=== PATIENT | male | born 1985 | race African-American/Black ===

== ENCOUNTER 2018-02-08 09:37 | Emergency (ER) | payer SELFPAY ==
[~2018-02-08] VITALS: Ht 188 cm; Wt 100.7 kg
[2018-02-08 09:45] VITALS: BP 130/78
--- NOTE | 2018-02-08 10:32 | PHYS DOC ---
Past History Past Medical History: Anxiety Past Surgical History: No Surgical History Alcohol Use: Occasionally Drug Use: None Adult General Chief Complaint Chief Complaint: LACERATION/AVULSION HPI HPI 33-year-old male presents with laceration of the left thumb. Patient was out shoveling snow and had to cut something with a small pocket knife. Pocket knife slipped and cut his left thumb. The nail was not involved. The laceration appeared to be 2.5cm in length. It was bleeding. Bleeding was controlled prior to arrival. The patient has no other injuries. His tetanus is not up-to-date. The knife was brand-new. It had not been used previously. Review of Systems Review of Systems Constitutional: Denies fever or chills [] Eyes: Denies change in visual acuity, redness, or eye pain [] HENT: Denies nasal congestion or sore throat [] Respiratory: Denies cough or shortness of breath [] Cardiovascular: No additional information not addressed in HPI [] GI: Denies abdominal pain, nausea, vomiting, bloody stools or diarrhea [] : Denies dysuria or hematuria [] Musculoskeletal: Denies back pain or joint pain [] Integument: Laceration of the left thumb[] Neurologic: Denies headache, focal weakness or sensory changes [] Endocrine: Denies polyuria or polydipsia [] All other systems were reviewed and found to be within normal limits, except as documented in this note. Current Medications Current Medications Current Medications Medications (Trade) Dose Ordered Sig/Jaime Start Time Stop Time Status Last Admin Dose Admin Diphtheria/ Tetanus/Acell Pertussis (Boostrix) 0.5 ml ONCE ONCE 02/08/18 10:00 02/08/18 10:01 UNV Allergies Allergies Allergies Coded Allergies Type Severity Reaction Last Updated Verified No Known Drug Allergies 02/08/18 No Physical Exam Physical Exam Constitutional: Well developed, well nourished, no acute distress, non-toxic appearance. [] HENT: Normocephalic, atraumatic, bilateral external ears normal, oropharynx moist, no oral exudates, nose normal. [] Eyes: PERRLA, EOMI, conjunctiva normal, no discharge. [] Neck: Normal range of motion, no tenderness, supple, no stridor. [] Cardiovascular:Heart rate regular rhythm, no murmur [] Lungs & Thorax: Bilateral breath sounds clear to auscultation [] Abdomen: Bowel sounds normal, soft, no tenderness, no masses, no pulsatile masses. [] Skin: 2.5 cm linear laceration of the pad of the left thumb. [] Back: No tenderness, no CVA tenderness. [] Extremities: No tenderness, no cyanosis, no clubbing, ROM intact, no edema. [] Neurologic: Alert and oriented X 3, normal motor function, normal sensory function, no focal deficits noted. [] Psychologic: Affect normal, judgement normal, mood normal. [] Current Patient Data Vital Signs Vital Signs Date Time Temp Pulse Resp B/P (MAP) Pulse Ox O2 Delivery O2 Flow Rate FiO2 02/08/18 09:45 90 22 97 Room Air EKG EKG [] Radiology/Procedures Radiology/Procedures [] Course & Med Decision Making Course & Med Decision Making Pertinent Labs and Imaging studies reviewed. (See chart for details) The patient was given a TD In the ED. His laceration was repaired without consultation. See note below for more details. [] Dragon Disclaimer Dragon Disclaimer This electronic medical record was generated, in whole or in part, using a voice recognition dictation system. Laceration Repair Lac Repair Indication: [2.5 cm linear laceration of the left thumb] Procedure: Verbal consent was obtained from the patient for the procedure to repair his laceration of the left thumb with sutures. The wound was cleansed with a saline Hibiclens solution. There were no obvious foreign bodies. One percent lidocaine was used as anesthetic. A total of 2 mL was used. Once anesthesia was achieved, I repaired the laceration with 4 4-0 Ethilon sutures in an interrupted fashion. There was good skin approximation. Leading was controlled. Total repaired wound length: 2.5cm. Other Items: None The patient tolerated the procedure well. Complications: None. Departure Departure: Referrals: PCP,BAM (PCP) NEIL REID DO Feb 08, 2018 10:32
[2018-02-08] MEDS: NEOMY/BACITR/POLYMYXIN OINT PACKET. TP ONE (10:40)
[2018-02-08] MEDS: DIPHTH,PERTUSS(ACELL),TET TOX 0.5 ML DISP.SYRIN. VAX IM ONE (10:40)
== END 2018-02-08 10:47 | disposition home or self-care (01) ==
LOC: ER 09:37
DX: S61.012A Laceration without foreign body of left thumb without damage to nail, initial encounter (principal); F41.9 Anxiety disorder, unspecified; W26.0XXA Contact with knife, initial encounter; Y93.H1 Activity, digging, shoveling and raking; Y92.89 Other specified places as the place of occurrence of the external cause; Y99.8 Other external cause status
CPT/HCPCS: 12001; 90471; 90715; 99283; 99284